=== PATIENT | female | born 2000 | race Caucasian/White ===

== ENCOUNTER 2019-09-18 17:45 | Inpatient (IN) | payer OTHER ==
[~2019-09-18] VITALS: Ht 165.1 cm; Wt 67.4 kg
[2019-09-18 19:19] LABS: BASOPHILS % (AUTO) 0.3 % (0.0-2.0); EOSINOPHILS % (AUTO) 3.6 % (1.0-6.0); HEMATOCRIT 44.6 % (36-46); HEMOGLOBIN 14.8 g/dL (12.0-16.0); LYMPHOCYTES # (AUTO) 3.2 K/uL (1.0-4.8); LYMPHOCYTES % (AUTO) 38.4 % (22.0-44.0); MEAN CORPUSCULAR HEMOGLOBIN 29.6 pg (26.0-34.0); MEAN CORPUSCULAR HGB CONC 33.3 G/dL (31.0-37.0); MEAN CORPUSCULAR VOLUME 89 fL (80-100); MONOCYTES # (AUTO) 0.5 K/uL (0.1-1.0); MONOCYTES % (AUTO) 6.2 % (2.0-9.0); NEUTROPHILS # (AUTO) 4.2 K/uL (1.8-7.7); NEUTROPHILS % (AUTO) 51.5 % (40.0-70.0); PLATELET COUNT (AUTO) 342 K/uL (150-450); RED BLOOD CELL COUNT(AUTO) 5.01 MIL/uL (4.00-5.20); RED CELL DISTRIBUTION WIDTH 13.1 % (11.5-14.5)
[2019-09-18 20:00] LABS: ALANINE AMINOTRANSFERASE 25 U/L (12-78); ALBUMIN 3.8 g/dL (3.4-5.0); ALKALINE PHOSPHATASE 79 U/L (46-116); ANION GAP 4 mmol/L (8-16); ASPARTATE AMINOTRANSFERASE 18 U/L (15-37); BILIRUBIN,TOTAL 0.3 mg/dL (0.1-1.0); CALCIUM, TOTAL 8.7 mg/dL (8.8-10.5); CARBON DIOXIDE 33 mmol/L (22-29); CHLORIDE 105 mmol/L (98-107); CREATININE 0.73 mg/dL (0.60-1.30); GLOMERULAR FILTR. RATE CALC > 60 mL/min (>60); GLUCOSE,RANDOM 99 mg/dL (70-110); HCG,QUANTITATIVE < 1 mIU/mL (0-6); POTASSIUM 4.1 mmol/L (3.5-5.1); SODIUM SERUM 142 mmol/L (136-145); TOTAL PROTEIN, SERUM 7.1 g/dL (6.4-8.2); UREA NITROGEN, BLOOD 11 mg/dL (7-18)
[2019-09-18 20:30] LABS: AMPHET/METH SCREEN,URINE POSITIVE (NEGATIVE); BARBITURATE SCREEN, URINE NEGATIVE (NEGATIVE); BENZODIAZEPINES SCREEN,URINE NEGATIVE (NEGATIVE); CANNABINOID SCREEN,URINE POSITIVE (NEGATIVE); COCAINE SCREEN,URINE NEGATIVE (NEGATIVE); METHADONE SCREEN, URINE NEGATIVE (NEGATIVE); OPIATE SCREEN,URINE POSITIVE (NEGATIVE)
[2019-09-18 20:32] LABS: PHENCYCLIDINE SCREEN,URINE NEGATIVE (NEGATIVE)
[2019-09-19] MEDS ORDERED: ZOLPIDEM TARTRATE 10 MG TABLET PO PRN (03:30)
[2019-09-19] MEDS ORDERED: LORazepam 2 MG TABLET PO PRN (03:30)
[2019-09-19 04:48] VITALS: BP 120/72
[2019-09-19] MEDS ORDERED: INFLUENZA VIRUS VACCINE QVS 2019-20 (3YR+)/PF 60 MCG/0.5 ML SYRINGE IM ONE (05:30)
[2019-09-19] MEDS ORDERED: PERMETHRIN 1% 60 ML LOTION TP ONE (06:30)
[2019-09-19 08:30] VITALS: BP 102/60
[2019-09-19] MEDS ORDERED: CloNIDine HCL 0.1 MG TABLET PO PRN (10:00)
[2019-09-19] MEDS ORDERED: IBUPROFEN 400 MG TABLET PO PRN (10:00)
[2019-09-19] MEDS ORDERED: DOCUSATE SODIUM 100 MG CAPSULE PO PRN (10:00)
[2019-09-19] MEDS ORDERED: MAG HYDROX/AL HYDROX/SIMETH ES 30 ML SUSPENSION UDCUP PO PRN (10:00)
[2019-09-19] MEDS ORDERED: GuaiFENesin/D-METHORPHAN [SUGAR-FREE] 200-20MG/10 ML SYRUP UDCUP PO PRN (10:00)
[2019-09-19] MEDS ORDERED: ONDANSETRON HCL 4 MG TABLET PO PRN (10:00)
[2019-09-19] MEDS ORDERED: NICOTINE 14 MG/24 HOUR PATCH TD PRN (10:00)
[2019-09-19] MEDS ORDERED: PETROLATUM,WHITE 28 GM JELLY TP PRN (10:00)
[2019-09-19] MEDS ORDERED: MAGNESIUM HYDROXIDE SUSPENSION 30 ML UDCUP PO PRN (10:00)
[2019-09-19] MEDS ORDERED: LOPERAMIDE HCL 2 MG CAPSULE PO PRN (10:00)
[2019-09-19] MEDS ORDERED: ACETAMINOPHEN 325 MG TABLET PO PRN (10:00)
[2019-09-19] MEDS ORDERED: ALBUTEROL SULFATE HFA 90 MCG/PUFF 8 GM INHALER IH PRN (10:00)
[2019-09-19 17:24] VITALS: BP 124/70
[2019-09-19] MEDS: OLANZapine 5 MG TABLET PO SCH (17:24)
[2019-09-20 07:02] LABS: CHOL/HDL RATIO 2.7 (3.9-5.7)
[2019-09-20] MEDS: OLANZapine 5 MG TABLET PO SCH (09:11)
[2019-09-20 09:43] VITALS: BP 112/67
[2019-09-20] MEDS: OLANZapine 10 MG TABLET PO SCH (16:24)
[2019-09-20 17:00] VITALS: BP 116/70
[2019-09-21 08:35] VITALS: BP 118/66
[2019-09-21] MEDS: OLANZapine 10 MG TABLET PO SCH ×2 (08:37→16:19)
[2019-09-21 20:29] VITALS: BP 117/75
[2019-09-22] MEDS: OLANZapine 10 MG TABLET PO SCH ×2 (09:24→17:10)
[2019-09-22 09:26] VITALS: BP 103/52
[2019-09-22 16:30] VITALS: BP 102/58
[2019-09-23 08:47] VITALS: BP 121/64
[2019-09-23] MEDS: OLANZapine 10 MG TABLET PO SCH ×2 (09:24→16:53)
[2019-09-23] MEDS ORDERED: DiphenhydrAMINE HCL 50 MG/ML VIAL ONE (10:55)
[2019-09-23] MEDS ORDERED: LORazepam 2 MG/ML VIAL ONE (10:55)
[2019-09-23] MEDS ORDERED: ZIPRASIDONE MESYLATE 20 MG/VIAL IM ONE ×2 (10:57→11:00)
[2019-09-23] MEDS ORDERED: LORazepam 2 MG/ML VIAL IM ONE (11:00)
[2019-09-23] MEDS ORDERED: DiphenhydrAMINE HCL 50 MG/ML VIAL IM ONE (11:00)
[2019-09-23] MEDS ORDERED: LORazepam 2 MG TABLET PO PRN (11:00)
[2019-09-23 17:08] VITALS: BP 94/62
[2019-09-23 18:11] LABS: GLUCOMETER DEV NAME(LOC) 3EX.; GLUCOSE,POINT OF CARE 94 MG/DL (70-110)
[2019-09-23 19:35] VITALS: BP 76/66
[2019-09-25 05:59] LABS: BASOPHILS % (AUTO) 0.5 % (0.0-2.0); EOSINOPHILS % (AUTO) 2.2 % (1.0-6.0); HEMATOCRIT 39.1 % (36-46); HEMOGLOBIN 13.3 g/dL (12.0-16.0); LYMPHOCYTES # (AUTO) 2.4 K/uL (1.0-4.8); LYMPHOCYTES % (AUTO) 36.8 % (22.0-44.0); MEAN CORPUSCULAR HEMOGLOBIN 29.9 pg (26.0-34.0); MEAN CORPUSCULAR HGB CONC 33.9 G/dL (31.0-37.0); MEAN CORPUSCULAR VOLUME 88 fL (80-100); MONOCYTES # (AUTO) 0.4 K/uL (0.1-1.0); MONOCYTES % (AUTO) 6.5 % (2.0-9.0); NEUTROPHILS # (AUTO) 3.5 K/uL (1.8-7.7); PLATELET COUNT (AUTO) 283 K/uL (150-450); RED BLOOD CELL COUNT(AUTO) 4.44 MIL/uL (4.00-5.20)
[2019-09-25 06:15] LABS: ALANINE AMINOTRANSFERASE 21 U/L (12-78); ALBUMIN 2.9 g/dL (3.4-5.0); ALKALINE PHOSPHATASE 61 U/L (46-116); ANION GAP 4 mmol/L (8-16); ASPARTATE AMINOTRANSFERASE 14 U/L (15-37); BILIRUBIN,TOTAL 0.2 mg/dL (0.1-1.0); CALCIUM, TOTAL 8.4 mg/dL (8.8-10.5); CARBON DIOXIDE 30 mmol/L (22-29); CHLORIDE 104 mmol/L (98-107); CREATININE 0.73 mg/dL (0.60-1.30); GLOMERULAR FILTR. RATE CALC > 60 mL/min (>60); GLUCOSE,RANDOM 92 mg/dL (70-110); POTASSIUM 4.5 mmol/L (3.5-5.1); SODIUM SERUM 138 mmol/L (136-145); TOTAL PROTEIN, SERUM 5.9 g/dL (6.4-8.2); UREA NITROGEN, BLOOD 19 mg/dL (7-18)
== END 2019-09-23 18:30 | disposition short-term general hospital (02) | DRG 881 ==
LOC: EMS 17:45 → 3EI 09-19 03:44
PROVIDERS: ADMIT Psychiatry & Neurology Psychiatry; ATTEND Psychiatry & Neurology Psychiatry
DX: F32.9 Major depressive disorder, single episode, unspecified (principal); R45.851 Suicidal ideations; F19.10 Other psychoactive substance abuse, uncomplicated; F17.210 Nicotine dependence, cigarettes, uncomplicated; Z23 Encounter for immunization; Z88.8 Allergy status to other drugs, medicaments and biological substances; Z59.0 Homelessness; Z91.5 Personal history of self-harm; G43.909 Migraine, unspecified, not intractable, without status migrainosus; F10.10 Alcohol abuse, uncomplicated; Y90.9 Presence of alcohol in blood, level not specified; F60.3 Borderline personality disorder; R55 Syncope and collapse; F25.9 Schizoaffective disorder, unspecified
CPT/HCPCS: 70450; 72125; 90686; 93005; G0480; J1200; J2060; J3486

== ENCOUNTER 2019-09-23 21:45 | Inpatient (IN) | payer OTHER ==
[2019-09-23 22:43] VITALS: BP 119/60
[2019-09-24] MEDS ORDERED: ACETAMINOPHEN 325 MG TABLET PO PRN (00:45)
[2019-09-24] MEDS ORDERED: MAGNESIUM HYDROXIDE SUSPENSION 30 ML UDCUP PO PRN (00:45)
[2019-09-24] MEDS: DOCUSATE SODIUM 100 MG CAPSULE PO SCH ×2 (00:45→08:25)
[2019-09-24] MEDS ORDERED: 0.9% SODIUM CHLORIDE 10 ML SYRINGE IVP PRN ×2 (00:45→02:15)
[2019-09-24] MEDS ORDERED: OxyCODONE HCL/ACETAMINOPHEN 5-325 MG TABLET PO PRN ×4 (00:45→02:15)
[2019-09-24] MEDS ORDERED: ONDANSETRON HCL 4 MG/2 ML VIAL IVP PRN (02:15)
[2019-09-24] MEDS ORDERED: SODIUM CHLORIDE 0.9% 1,000 ML IV SCH (02:15)
[2019-09-24] MEDS ORDERED: -PHARMACY VACCINE NOTE- MISC ONE (04:00)
[2019-09-24 04:37] VITALS: BP 90/41
[2019-09-24 07:59] VITALS: BP 89/41
[2019-09-24] MEDS ORDERED: DOCUSATE SODIUM 100 MG CAPSULE PO SCH (09:00)
[2019-09-24] MEDS ORDERED: FAMOTIDINE 10 MG/ML 2 ML VIAL IVP SCH (09:00)
[2019-09-24 11:34] VITALS: BP 121/59
[2019-09-24] MEDS ORDERED: LORazepam 2 MG/ML VIAL ONE (11:41)
[2019-09-24] MEDS ORDERED: DiphenhydrAMINE HCL 50 MG/ML VIAL ONE (11:42)
[2019-09-24] MEDS ORDERED: DiphenhydrAMINE HCL 50 MG/ML VIAL IM ONE (11:45)
[2019-09-24] MEDS ORDERED: LORazepam 2 MG/ML VIAL IM ONE (11:45)
[2019-09-24 15:21] VITALS: BP 118/62
== END 2019-09-24 17:05 | DRG 312 ==
LOC: 5S 21:45 → UNDODISIN 09-24 12:00
PROVIDERS: ADMIT Internal Medicine; ATTEND Internal Medicine
DX: I95.2 Hypotension due to drugs (principal); R45.851 Suicidal ideations; F32.9 Major depressive disorder, single episode, unspecified; F19.10 Other psychoactive substance abuse, uncomplicated; G43.909 Migraine, unspecified, not intractable, without status migrainosus; G44.209 Tension-type headache, unspecified, not intractable
CPT/HCPCS: J1200; J2060; J3490; J7030

== ENCOUNTER 2019-09-24 17:10 | Inpatient (IN) | payer OTHER ==
[~2019-09-24] VITALS: Ht 167.6 cm; Wt 70.9 kg
[2019-09-24] MEDS ORDERED: ZOLPIDEM TARTRATE 10 MG TABLET PO PRN (19:00)
[2019-09-24 19:41] VITALS: BP 91/56
[2019-09-24] MEDS ORDERED: -PHARMACY VACCINE NOTE- MISC ONE (20:15)
[2019-09-24] MEDS: OLANZapine 10 MG TABLET PO SCH (20:44)
[2019-09-24 22:33] VITALS: BP 110/78
[2019-09-25] MEDS: OLANZapine 10 MG TABLET PO SCH (08:48)
[2019-09-25] MEDS: NICOTINE 14 MG/24 HOUR PATCH TD PRN (08:49)
[2019-09-25] MEDS: LORazepam 2 MG TABLET PO PRN (16:28)
[2019-09-25] MEDS: OLANZapine 7.5 MG TABLET PO SCH (16:29)
[2019-09-25 19:40] VITALS: BP 118/71
[2019-09-26 06:34] LABS: GLUCOMETER DEV NAME(LOC) 3E.C; GLUCOSE,POINT OF CARE 93 MG/DL (70-110)
[2019-09-26] MEDS: OLANZapine 7.5 MG TABLET PO SCH ×2 (07:38→16:12)
[2019-09-26 13:14] VITALS: BP 108/58
[2019-09-26] MEDS: LORazepam 2 MG TABLET PO PRN (16:12)
[2019-09-26] MEDS: NICOTINE 14 MG/24 HOUR PATCH TD PRN (16:13)
[2019-09-26 16:49] VITALS: BP 124/65
[2019-09-27] MEDS: OLANZapine 7.5 MG TABLET PO SCH (08:06)
[2019-09-27 08:47] VITALS: BP 118/73
[2019-09-27] MEDS ORDERED: OLAN7.5T2 PO ×2 (11:09→11:11)
== END 2019-09-27 14:00 | disposition home or self-care (01) | DRG 885 ==
LOC: 3EC 17:10
PROVIDERS: ADMIT Psychiatry & Neurology Psychiatry; ATTEND Psychiatry & Neurology Psychiatry
DX: F25.9 Schizoaffective disorder, unspecified (principal); F10.10 Alcohol abuse, uncomplicated; G43.909 Migraine, unspecified, not intractable, without status migrainosus; I95.1 Orthostatic hypotension; F19.10 Other psychoactive substance abuse, uncomplicated; Z71.41 Alcohol abuse counseling and surveillance of alcoholic; Z71.51 Drug abuse counseling and surveillance of drug abuser; Z87.891 Personal history of nicotine dependence; Z88.8 Allergy status to other drugs, medicaments and biological substances; Z59.0 Homelessness

== ENCOUNTER 2020-04-27 10:25 | Inpatient (IN) | payer MEDICAID, OTHER ==
[~2020-04-27] VITALS: Ht 165.1 cm; Wt 61.8 kg
[~2020-04-27 10:25] MED LIST: OLAN7.5T2 PO
[2020-04-27] MEDS ORDERED: ALPR0.255 PO (10:50)
[2020-04-27 11:27] LABS: BASOPHILS % (AUTO) 0.4 % (0.0-2.0); EOSINOPHILS % (AUTO) 1.4 % (1.0-6.0); HEMATOCRIT 37.2 % (36-46); HEMOGLOBIN 12.2 g/dL (12.0-16.0); LYMPHOCYTES # (AUTO) 2.2 K/uL (1.0-4.8); LYMPHOCYTES % (AUTO) 34.2 % (22.0-44.0); MEAN CORPUSCULAR HEMOGLOBIN 27.8 pg (26.0-34.0); MEAN CORPUSCULAR HGB CONC 32.8 G/dL (31.0-37.0); MEAN CORPUSCULAR VOLUME 85 fL (80-100); MONOCYTES # (AUTO) 0.4 K/uL (0.1-1.0); MONOCYTES % (AUTO) 5.8 % (2.0-9.0); NEUTROPHILS # (AUTO) 3.7 K/uL (1.8-7.7); NEUTROPHILS % (AUTO) 58.2 % (40.0-70.0); PLATELET COUNT (AUTO) 358 K/uL (150-450); RED BLOOD CELL COUNT(AUTO) 4.39 MIL/uL (4.00-5.20); RED CELL DISTRIBUTION WIDTH 14.6 % (11.5-14.5)
[2020-04-27 11:44] LABS: ANION GAP 8 mmol/L (8-16); CALCIUM, TOTAL 8.9 mg/dL (8.8-10.5); CARBON DIOXIDE 27 mmol/L (22-29); CHLORIDE 103 mmol/L (98-107); CREATININE 0.73 mg/dL (0.60-1.30); GLOMERULAR FILTR. RATE CALC > 60 mL/min (>60); GLUCOSE,RANDOM 127 mg/dL (70-110); POTASSIUM 3.4 mmol/L (3.5-5.1); SODIUM SERUM 138 mmol/L (136-145); UREA NITROGEN, BLOOD 20 mg/dL (7-18)
[2020-04-27 12:00] LABS: ALANINE AMINOTRANSFERASE 27 U/L (12-78); ALBUMIN 3.4 g/dL (3.4-5.0); ALKALINE PHOSPHATASE 79 U/L (46-116); ASPARTATE AMINOTRANSFERASE 18 U/L (15-37); BILIRUBIN,TOTAL 0.5 mg/dL (0.1-1.0)
[2020-04-27 12:19] LABS: HCG,QUANTITATIVE < 1 mIU/mL (0-6)
[2020-04-27] MEDS ORDERED: OLANZapine 5 MG RAPDIS TABLET PO PRN (17:15)
[2020-04-27] MEDS ORDERED: LORazepam 2 MG TABLET PO PRN (17:15)
[2020-04-27] MEDS ORDERED: ZOLPIDEM TARTRATE 10 MG TABLET PO PRN (17:15)
[2020-04-27] MEDS: OLANZapine 7.5 MG TABLET PO SCH (18:18)
[2020-04-27] MEDS ORDERED: QUEtiapine FUMARATE 100 MG TABLET ONE (18:44)
[2020-04-27] MEDS ORDERED: QUEtiapine FUMARATE 100 MG TABLET PO PRN (18:45)
[2020-04-27 19:15] VITALS: BP 115/67
[2020-04-28] MEDS ORDERED: IBUPROFEN 400 MG TABLET PO PRN (06:45)
[2020-04-28] MEDS ORDERED: DOCUSATE SODIUM 100 MG CAPSULE PO PRN (06:45)
[2020-04-28] MEDS ORDERED: NICOTINE 14 MG/24 HOUR PATCH TD PRN (06:45)
[2020-04-28] MEDS ORDERED: CloNIDine HCL 0.1 MG TABLET PO PRN (06:45)
[2020-04-28] MEDS ORDERED: ALBUTEROL SULFATE HFA 90 MCG/PUFF 8 GM INHALER IH PRN (06:45)
[2020-04-28] MEDS ORDERED: PETROLATUM,WHITE 28 GM JELLY TP PRN (06:45)
[2020-04-28] MEDS ORDERED: LOPERAMIDE HCL 2 MG CAPSULE PO PRN (06:45)
[2020-04-28] MEDS ORDERED: GuaiFENesin/D-METHORPHAN [SUGAR-FREE] 200-20MG/10 ML SYRUP UDCUP PO PRN (06:45)
[2020-04-28] MEDS ORDERED: MAGNESIUM HYDROXIDE SUSPENSION 30 ML UDCUP PO PRN (06:45)
[2020-04-28] MEDS ORDERED: ONDANSETRON HCL 4 MG TABLET PO PRN (06:45)
[2020-04-28] MEDS ORDERED: ACETAMINOPHEN 325 MG TABLET PO PRN (06:45)
[2020-04-28] MEDS ORDERED: MAG HYDROX/AL HYDROX/SIMETH ES 30 ML SUSPENSION UDCUP PO PRN (06:45)
[2020-04-28] MEDS: OLANZapine 7.5 MG TABLET PO SCH ×2 (08:58→17:53)
[2020-04-28 16:25] VITALS: BP 99/67
[2020-04-29] MEDS: OLANZapine 7.5 MG TABLET PO SCH ×2 (09:00→16:13)
[2020-04-29] MEDS ORDERED: POTASSIUM CHLORIDE 20 MEQ ER TABLET PO ONE (09:15)
[2020-04-29 16:31] VITALS: BP 98/64
[2020-04-30 08:00] VITALS: BP 107/80
[2020-04-30] MEDS: OLANZapine 7.5 MG TABLET PO SCH ×2 (09:52→16:49)
== END 2020-04-30 17:15 | disposition home or self-care (01) | DRG 885 ==
LOC: EMS 10:26 → UNDOADMIN 17:08 → 3EC 17:08 → UNDOADMIN 17:46 → 3EC 17:46 → 3EI 04-28 19:02
PROVIDERS: ADMIT Psychiatry & Neurology Child & Adolescent Psychiatry; ATTEND Psychiatry & Neurology Child & Adolescent Psychiatry
DX: F25.9 Schizoaffective disorder, unspecified (principal); E87.6 Hypokalemia; F10.10 Alcohol abuse, uncomplicated; F60.3 Borderline personality disorder; I95.9 Hypotension, unspecified; F19.10 Other psychoactive substance abuse, uncomplicated; Z91.19 Patient's noncompliance with other medical treatment and regimen; Z79.899 Other long term (current) drug therapy
CPT/HCPCS: 70450; 72125; 84132; G0480